=== PATIENT | male | born 1980 | race Caucasian/White ===

== ENCOUNTER 2021-11-20 07:52 | Emergency (ER) | payer OTHER ==
[~2021-11-20] VITALS: Ht 170.2 cm; Wt 104.3 kg
--- NOTE | 2021-11-20 07:58 | NUR ---
BIB SELF C/0 BODY PAIN AND LOSS OF TASTE STARTED YESTERDAY. STATED THAT HE IS UNABLE TO SLEEP DUE TO BODY PAIN. VITALS ARE WITHIN NORMAL LIMITS, NO RESPIRATORY DISTRESS NOTED.
--- NOTE | 2021-11-20 08:08 | NUR ---
AT BEDSIDE FOR EVAL.
[2021-11-20] MEDS ORDERED: KETOROLAC TROMETHAMINE 15 MG/ML VIAL ONE (08:26)
[2021-11-20] MEDS ORDERED: KETOROLAC TROMETHAMINE INJ 30 MG/ML VIAL IM ONE (08:30)
--- NOTE | 2021-11-20 08:46 | NUR ---
COVID PCR COLLECTED AND SENT
[2021-11-20] MEDS ORDERED: IBUP-1955 PO (08:51)
[2021-11-20 08:59] VITALS: BP 138/84
--- NOTE | 2021-11-20 08:59 | NUR ---
Patient discharged to home in stable condition. Written and verbal after care instructions given. Patient verbalizes understanding of instruction.
--- NOTE | 2021-11-23 07:16 | NUR ---
NOTIFIED PATIENT OF BEING POSITIVE FOR COVID.
== END 2021-11-20 09:00 | disposition home or self-care (01) ==
LOC: ER 07:55
DX: U07.1 COVID-19 (principal); R43.9 Unspecified disturbances of smell and taste; I10 Essential (primary) hypertension
CPT/HCPCS: 96372; 99283; C9803; J1885; U0003

== ENCOUNTER 2024-11-22 11:20 | Emergency (ER) | payer OTHER ==
[~2024-11-22] VITALS: Ht 170.2 cm; Wt 97.5 kg
[~2024-11-22 11:20] MED LIST: IBUP-1955 PO
[2024-11-22 11:25] VITALS: TEMP 98
[2024-11-22] MEDS ORDERED: CEPHALEXIN MONOHYDRATE 500 MG CAPSULE PO ONE (11:51)
[2024-11-22] MEDS ORDERED: HYDROCODONE/APAP 5/325MG TABLET ONE (11:51)
[2024-11-22] MEDS ORDERED: SULFAMETH/TRIMETH 800/160 MG 1 UDTAB TABLET ONE (11:52)
[2024-11-22] MEDS: SULFAMETH/TRIMETH 800/160 MG 1 UDTAB TABLET PO ONE (11:55)
[2024-11-22] MEDS: HYDROCODONE/APAP 5/325MG TABLET PO ONE (11:55)
[2024-11-22] MEDS: CEPHALEXIN MONOHYDRATE 500 MG CAPSULE PO ONE (11:55)
[2024-11-22] MEDS ORDERED: SULF1TAB48 PO (12:08)
[2024-11-22] MEDS ORDERED: CEPH-570 PO (12:08)
[2024-11-22] MEDS ORDERED: HYDR-4209 PO (12:08)
[2024-11-22] MEDS ORDERED: IBUP-1490 PO (12:08)
[2024-11-22 12:43] VITALS: BP 125/85; O2SAT 97
== END 2024-11-22 12:42 | disposition home or self-care (01) ==
LOC: ER 11:25
DX: L03.031 Cellulitis of right toe (principal); I10 Essential (primary) hypertension; Z60.2 Problems related to living alone; Z79.899 Other long term (current) drug therapy
CPT/HCPCS: 82962-TC

== ENCOUNTER 2024-12-27 06:36 | Emergency (ER) | payer OTHER ==
[~2024-12-27] VITALS: Ht 167.6 cm; Wt 95.3 kg
[~2024-12-27 06:36] MED LIST changes: +CEPH-570 PO; +HYDR-4209 PO; +IBUP-1490 PO; +SULF1TAB48 PO
[2024-12-27] MEDS ORDERED: NAPR-1009 PO (07:22)
[2024-12-27 07:31] VITALS: BP 128/82; TEMP 98.4; O2SAT 98
== END 2024-12-27 07:33 | disposition home or self-care (01) ==
LOC: ER 06:36
DX: S63.591A Other specified sprain of right wrist, initial encounter (principal); I10 Essential (primary) hypertension; Z60.2 Problems related to living alone; Z79.899 Other long term (current) drug therapy; V19.9XXA Pedal cyclist (driver) (passenger) injured in unspecified traffic accident, initial encounter; Y93.89 Activity, other specified; Y92.89 Other specified places as the place of occurrence of the external cause; Y99.8 Other external cause status
CPT/HCPCS: 73110; 73130-TC